=== PATIENT | male | born 1990 | race American Indian/Alaskan Native ===

== ENCOUNTER 2021-01-16 18:04 | Emergency (ER) | payer SELFPAY ==
[2021-01-16 19:15] VITALS: BP 155/77
--- NOTE | 2021-01-16 20:37 | Emergency Department Report ---
ED Extremity Problem HPI - General Chief complaint: Extremity Problem,Nontraumatic Stated complaint: LT LEG PAIN Time Seen by Provider: 01/16/21 19:58 Source: patient Mode of arrival: Ambulatory Limitations: No Limitations - History of Present Illness Initial comments: Patient is a 30-year-old male presents emergency room complaints of left leg swelling and pain that began a month ago. He states initially he had an abscess and had I&D performed and the abscess completely resolved. He states over the last month he has had continued pain and a small amount of swelling. He denies any fall or injury. He is ambulatory without difficulty. He denies ever having this in the past. He denies any numbness or weakness. No past medical history. No allergies medications. Severity scale (0 -10): 9 - Related Data Previous Rx's Medication Instructions Recorded Last Taken Type Naproxen [EC-Naproxen] 500 mg PO BID PRN #14 tablet. 01/16/21 Unknown Rx ED Review of Systems ROS: Stated complaint: LT LEG PAIN Other details as noted in HPI Comment: All other systems reviewed and negative ED Past Medical Hx - Past Medical History Previous Medical History?: No - Surgical History Past Surgical History?: No - Medications Home Medications: Home Medications Medication Instructions Recorded Confirmed Last Taken Type Naproxen [EC-Naproxen] 500 mg PO BID PRN #14 tablet. 01/16/21 Unknown Rx ED Physical Exam - General Limitations: No Limitations General appearance: alert, in no apparent distress - Head Head exam: Present: atraumatic, normocephalic - Eye Eye exam: Present: normal appearance - ENT ENT exam: Present: mucous membranes moist - Respiratory Respiratory exam: Absent: respiratory distress, accessory muscle use - Extremities Exam Extremities exam: Present: other (no bony ttp of the LLE, mild edema present to the left gomes, there is a healed incision from previous abscess, no signs of infection, no erythema or increased warmth, no calf ttp, FROM of the LLE, neurovascularly intact, compartments are soft) - Neurological Exam Neurological exam: Present: alert, oriented X3 - Psychiatric Psychiatric exam: Present: normal affect, normal mood - Skin Skin exam: Present: warm, dry, intact ED Course Vital Signs 01/16/21 19:14 Temperature 98.3 F Pulse Rate 72 Respiratory 18 Rate Blood Pressure 155/77 [Right] O2 Sat by Pulse 99 Oximetry ED Medical Decision Making - Radiology Data Radiology results: report reviewed Ordering Physician: DAVIAN ORTEGA Date of Service: 01/16/21 Procedure(s): VL venous duplex LE LT Accession Number(s): [id number] cc: DAVIAN ORTEGA DUPLEX DOPPLER LOWER EXTREMITY VEINS, LEFT INDICATION: left leg pain and swelling. TECHNIQUE: Duplex doppler imaging was performed through the veins of the left lower extremity using venous compression and other maneuvers. COMPARISON: None available. FINDINGS: Common Femoral vein: Negative. Superficial Femoral vein: Negative. Popliteal vein: Negative. Calf veins: Negative. Additional findings: None. IMPRESSION: 1. No sonographic evidence for DVT in the left lower extremity. Signer Name: Bhavin Giles MD Signed: 01/16/2021 8:49 PM Workstation Name: [id number] Transcribed By: ABBY Dictated By: Bhavin Giles MD Electronically Authenticated By: Bhavin Giles MD Signed Date/Time: 01/16/212048 DD/ 48 TD/TT: Print Cancel - Medical Decision Making Patient is a 30-year-old male presents emergency room complaints of left leg swelling and pain that began a month ago. He states initially he had an abscess and had I&D performed and the abscess completely resolved. He states over the last month he has had continued pain and a small amount of swelling. He denies any fall or injury. He is ambulatory without difficulty. He denies ever having this in the past. He denies any numbness or weakness. No past medical history. No allergies medications. vss. on exam:no bony ttp of the LLE, mild edema present to the left gomes, there is a healed incision from previous abscess, no signs of infection, no erythema or increased warmth, no calf ttp, FROM of the LLE, neurovascularly intact, compartments are soft. US LLE: 1. No sonographic evidence for DVT in the left lower extremity. Patient given prescription for naproxen. Patient will be referred to primary care doctor and orthopedic doctor. Discussed return precautions. Patient has no signs of any infection. His compartments are soft. He has had no acute trauma, he is ambulating with out difficulty. He is neurovascularly intact with strong pulses. Advised patient Please take medication as prescribed as needed. May ice the leg for 15 minutes at a time, elevate the leg. Follow-up with a primary care doctor. Follow-up with orthopedic doctor. Return to emergency room for new or symptoms. Critical care attestation.: If time is entered above; I have spent that time in minutes in the direct care of this critically ill patient, excluding procedure time. ED Disposition Clinical Impression: Left leg pain, Left leg swelling Disposition: TO HOME OR SELFCARE Is pt being admited?: No Does the pt Need Aspirin: No Condition: Stable Additional Instructions: Please take medication as prescribed as needed. May ice the leg for 15 minutes at a time, elevate the leg. Follow-up with a primary care doctor. Follow-up w ith orthopedic doctor. Return to emergency room for new or symptoms. Prescriptions: Naproxen [EC-Naproxen] 500 mg PO BID PRN #14 tablet.dr ESPINOZA Reason: pain Referrals: RADHA GRAFF MD [Staff Physician] - 3-[address] [facility] [Provider Group] - 3-5 Days KETTY BRIDGES MD [Staff Physician] - 3-5 Days [facility] [Provider Group] - 3-5 Days Time of Disposition: 21:02 Print Language: SWEDISH
--- NOTE | 2021-01-16 20:54 | Vascular Lab Report ---
DUPLEX DOPPLER LOWER EXTREMITY VEINS, LEFT INDICATION: left leg pain and swelling. TECHNIQUE: Duplex doppler imaging was performed through the veins of the left lower extremity using venous compr ession and other maneuvers. COMPARISON: None available. FINDINGS: Common Femoral vein: Negative. Superficial Femoral vein: Negative. Popliteal vein: Negative. Calf veins: Negative. Additional findings: None. IMPRESSION: 1. No sonographic evidence for DVT in the left lower extremity. Signer Name: Bhavin Giles MD Signed: 01/16/2021 8:49 PM Workstation Name: [id number]
== END 2021-01-16 22:19 | disposition home or self-care (01) ==
LOC: ED 18:04
DX: M79.605 Pain in left leg (principal); Z79.899 Other long term (current) drug therapy
CPT/HCPCS: 99283